=== PATIENT | male | born 1955 | race Caucasian/White ===

== ENCOUNTER 2016-10-29 13:17 | Inpatient (IN) | payer OTHER ==
[~2016-10-29] VITALS: Ht 175.3 cm; Wt 110.2 kg
[~2016-10-29 13:17] MED LIST: FOLIC ACID 40400 MCG PO; IRON325 MG PO; MOBIC 7.5MG7.5 MG PO; VITAMIN C500 MG PO
[2017-01-01] VITALS (11 sets, daily range): BP systolic 119–146; BP diastolic 59–81; PULSE 16–82; TEMP 97.9–98.5
[2017-01-02 01:02] VITALS: BP 113/61; PULSE 74; TEMP 98
[2017-01-02 04:34] VITALS: BP 139/69; PULSE 86; TEMP 97.3
[2017-01-02 07:10] VITALS: BP 143/79; PULSE 66; TEMP 99.5
[2017-01-02 07:52] LABS: HEMATOCRIT 37.8 % (42.0-52.0); HEMOGLOBIN 12.8 g/dl (13.5-18.0)
[2017-01-02 11:43] VITALS: BP 154/66; PULSE 78; TEMP 98.5
[2017-01-02] MEDS ORDERED: ASPI325T6 PO (12:09)
[2017-01-02] MEDS ORDERED: SENOKOT8.6 MG PO (12:10)
[2017-01-02] MEDS ORDERED: TYLENOL 500MG500 MG PO (12:10)
[2017-01-02] MEDS ORDERED: ROXICODONE 55 MG/TAB PO (12:11)
[2017-01-02] MEDS ORDERED: NORCO 325 MG-7.1 TAB PO (12:12)
== END 2017-01-02 14:05 | disposition home or self-care (01) | DRG 470 ==
LOC: INPTSU 01-01 08:23 → SURG 01-01 08:38 → JCC 01-01 10:30
PROVIDERS: Orthopaedic Surgery
PROC: 0SRC0J9 Replacement of Right Knee Joint with Synthetic Substitute, Cemented, Open Approach (ICD-10-PCS; principal; 2017-01-01 13:20)
DX: M17.11 Unilateral primary osteoarthritis, right knee (principal); F17.220 Nicotine dependence, chewing tobacco, uncomplicated
CPT/HCPCS: A4315; A9284; C1713; C1776; J0690; J1100; J2250; J2704; J7120

== ENCOUNTER → 2016-12-25 | Outpatient (CLI) | payer OTHER ==
[~2016-12-25] MED LIST changes: +ASPI325T6 PO; +NORCO 325 MG-7.1 TAB PO; +ROXICODONE 55 MG/TAB PO; +SENOKOT8.6 MG PO; +TYLENOL 500MG500 MG PO
[2016-12-25 17:37] LABS: HIV 1/2 Antibodies Non-Reactive; HIV-1p24 Antigen Non-Reactive
== END ==
LOC: COL.LAB 16:30
PROVIDERS: Orthopaedic Surgery
DX: Z01.812 Encounter for preprocedural laboratory examination (principal); M25.861 Other specified joint disorders, right knee